=== PATIENT | female | born 1990 | race American Indian/Alaskan Native ===

== ENCOUNTER 2017-04-27 00:43 | Emergency (ER) | payer SELFPAY ==
[2017-04-27 00:58] VITALS: BP 132/87; PULSE 108; RESP 18; TEMP 97.9; O2SAT 100
[2017-04-27] MEDS ORDERED: Tdap Vaccine 0.5 ml Vial (10-64 yrs) IM ONE ×2 (01:37→01:57)
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
[2017-04-27] MEDS ORDERED: Ammonia 2% Inhalant ONE (05:45)
[2017-04-27] MEDS ORDERED: Ammonia 2% Inhalant INH ONE (05:49)
== END 2017-04-27 06:00 | disposition home or self-care (01) ==
LOC: H.ER 00:43
DX: F10.129 Alcohol abuse with intoxication, unspecified (principal); S09.90XA Unspecified injury of head, initial encounter; W01.0XXA Fall on same level from slipping, tripping and stumbling without subsequent striking against object, initial encounter; Y92.89 Other specified places as the place of occurrence of the external cause
CPT/HCPCS: 70450; 81025; 82948; 90471; 90715; 96372; 99282; G0480; J1630; J2060